=== PATIENT | male | born 1985 | race Caucasian/White ===

== ENCOUNTER 2018-04-14 16:56 | Emergency (ER) | payer OTHER ==
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
[2018-04-14 17:50] VITALS: BP 138/109
== END 2018-04-14 17:50 | disposition home or self-care (01) ==
LOC: EDUNIT#
DX: S49.92XA Unspecified injury of left shoulder and upper arm, initial encounter (principal); J44.9 Chronic obstructive pulmonary disease, unspecified; M54.9 Dorsalgia, unspecified; G89.29 Other chronic pain; M41.9 Scoliosis, unspecified; F11.20 Opioid dependence, uncomplicated; V89.2XXA Person injured in unspecified motor-vehicle accident, traffic, initial encounter; Y92.9 Unspecified place or not applicable; Y93.9 Activity, unspecified; Y99.9 Unspecified external cause status
CPT/HCPCS: 73030; 73060; 99283; A4565